=== PATIENT | male | born 1950 | race Caucasian/White ===

== ENCOUNTER 2025-02-04 07:06 | Day surgery (SDC) | payer MEDICARE ==
[~2025-02-04 07:06] MED LIST: Lactated Ringers 1,000 ML IV ONE
[2025-02-04] MEDS ORDERED: Lactated Ringers 1,000 ML IV SCH ×2 (07:30)
[2025-02-04] MEDS: TETRACAINE 0.5% STERI-UNIT SOL OP ONE ×2 (07:45→08:10)
[2025-02-04] MEDS: Ak-Dilate OPHTHALMIC*** 0.71 ML, Cyclogyl 1% OPHTH SOL 0.71 ML, GATIFLOXACIN 0.5% OPHTH... OP SCH (08:00)
[2025-02-04] MEDS ORDERED: Zofran 4 MG/2 ML VIAL IV PRN (09:30)
[2025-02-04] MEDS ORDERED: VIGAMOX/BSS 0.15% SYR IO NR (09:30)
[2025-02-04] MEDS ORDERED: TRIAMCINOLONE 15 MG/ML INJ INTRAOP NR (09:30)
[2025-02-04] MEDS ORDERED: Epinephrine Preservative Free 1 MG/ML INTRAOP NR (09:30)
[2025-02-04] MEDS ORDERED: BETADINE 5% OPHTHALMIC 30 ML OP NR (09:30)
[2025-02-04] MEDS ORDERED: DEXMEDETOMIDINE 80 MCG/20ML-NS IV NR (09:30)
[2025-02-04] MEDS ORDERED: propofoL IV ONE ×2 (11:24→11:40)
[2025-02-04] MEDS: ACETAZOLAMIDE 250 MG TABLET PO ONE (12:04)
[2025-02-04 12:23] VITALS: BP 160/88; PULSE 67; RESP 20; TEMP 97.5; O2SAT 97
== END 2025-02-04 12:26 | disposition home or self-care (01) ==
LOC: SDC 07:06
PROVIDERS: ATTEND Ophthalmology
DX: H25.811 Combined forms of age-related cataract, right eye (principal); I10 Essential (primary) hypertension

== ENCOUNTER 2025-03-11 09:54 | Day surgery (SDC) | payer MEDICARE ==
[2025-03-11] MEDS ORDERED: Lactated Ringers 1,000 ML IV ONE (10:04)
[2025-03-11 10:46] LABS: Calcium 8.5 mg/dL (8.4-10.2); Carbon Dioxide 27.0 mmol/L (22-30); Creatinine 1 1.26 mg/dL (0.66-1.25); EST GLOMERULAR FILTRATION RATE 59.5 ML/MIN; Glucose 108.0 mg/dL (74-106); Potassium 4.0 mmol/L (3.5-5.1)
[2025-03-11] MEDS: TETRACAINE 0.5% STERI-UNIT SOL OP ONE ×2 (10:46→10:47)
[2025-03-11] MEDS: Lactated Ringers 1,000 ML IV SCH (10:46)
[2025-03-11] MEDS: Ak-Dilate OPHTHALMIC*** 0.71 ML, Cyclogyl 1% OPHTH SOL 0.71 ML, GATIFLOXACIN 0.5% OPHTH... OP SCH (10:47)
[2025-03-11] MEDS ORDERED: propofoL IV ONE ×2 (12:07→12:29)
[2025-03-11 12:42] VITALS: RESP 16
[2025-03-11] MEDS: ACETAZOLAMIDE 250 MG TABLET PO ONE (12:47)
[2025-03-11 12:56] VITALS: BP 146/83; PULSE 69; TEMP 97; O2SAT 97
[2025-03-11] MEDS ORDERED: Zofran 4 MG/2 ML VIAL IV PRN (13:00)
[2025-03-11] MEDS ORDERED: Epinephrine Preservative Free 1 MG/ML INTRAOP NR (13:00)
[2025-03-11] MEDS ORDERED: VIGAMOX/BSS 0.15% SYR IO NR (13:00)
[2025-03-11] MEDS ORDERED: DEXMEDETOMIDINE 80 MCG/20ML-NS IV NR (13:00)
[2025-03-11] MEDS ORDERED: BETADINE 5% OPHTHALMIC 30 ML OP NR (13:00)
[2025-03-11] MEDS ORDERED: TRIAMCINOLONE 15 MG/ML INJ INTRAOP NR (13:00)
== END 2025-03-11 13:02 | disposition home or self-care (01) ==
LOC: SDC 09:54
PROVIDERS: ATTEND Ophthalmology
DX: H25.812 Combined forms of age-related cataract, left eye (principal)